=== PATIENT | female | born 1950 | race Caucasian/White ===

== ENCOUNTER → 2016-11-02 | Outpatient (CLI) | payer OTHER ==
[~2016-11-02] MED LIST: ALEN1TAB48 PO; AMLO5TAB2 PO; ASPI81CH CHEW; LOVA10TA PO; OMEP40CA2 PO; VARE1 PO
== END ==
LOC: PLAB 14:40
PROVIDERS: ATTEND Obstetrics & Gynecology
DX: Z01.818 Encounter for other preprocedural examination (principal)
CPT/HCPCS: 36415; 86900; 86901

== ENCOUNTER → 2016-11-03 | Outpatient (CLI) | payer OTHER | LOC: PHPRE 14:08 | PROVIDERS: ATTEND Obstetrics & Gynecology | DX: Z01.812 Encounter for preprocedural laboratory examination (principal) | CPT/HCPCS: 36415; 86850; 86900; 86901; 86920 ==

== ENCOUNTER 2016-11-04 08:01 | Inpatient (IN) | payer OTHER, MEDICARE ==
[~2016-11-04] VITALS: Ht 162.6 cm; Wt 44.8 kg
[~2016-11-04 08:01] MED LIST changes: -ALEN1TAB48 PO; -AMLO5TAB2 PO; -LOVA10TA PO; -OMEP40CA2 PO; -VARE1 PO
[2016-11-04] MEDS ORDERED: ceFAZolin 1,000 MG/NS 100 ML IV PRN ×2 (08:30)
[2016-11-04] MEDS ORDERED: OMEP40CA2 PO (09:09)
[2016-11-04] MEDS ORDERED: ALEN1TAB48 PO (09:09)
[2016-11-04] MEDS ORDERED: AMLO5TAB2 PO (09:09)
[2016-11-04] MEDS ORDERED: VARE1 PO (09:09)
[2016-11-04] MEDS ORDERED: LOVA10TA PO (09:09)
[2016-11-04 09:20] VITALS: BP 151/90; PULSE 71; RESP 18; TEMP 98.3; O2SAT 98
[2016-11-04] MEDS ORDERED: FAMOTIDINE 20 MG/2 ML VIAL ONE (09:36)
[2016-11-04] MEDS ORDERED: METOPROLOL TARTRATE 25 MG TAB PO PRN (09:45)
[2016-11-04] MEDS ORDERED: POVIDONE IODINE 5% (ANTISEPSIS KIT) 4 APPLICATIONS EACH NARE PRN (09:45)
[2016-11-04] MEDS ORDERED: CHLORHEXIDINE GLUCONATE 2 % 1 PACK (2 CLOTHS) TOPICAL PRN (09:45)
[2016-11-04] MEDS ORDERED: SODIUM CHLORID 0.9% 500 ML IV PRN (09:45)
[2016-11-04] MEDS ORDERED: INSULIN HUMAN REGULAR 1,000 UNITS/10 ML VIAL SQ PRN (09:45)
[2016-11-04] MEDS ORDERED: LACTATED RINGER'S 1000 ML IV PRN (09:45)
[2016-11-04] MEDS ORDERED: VASOPRESSIN INJ 20 UNITS/ML VIAL ONE (10:35)
[2016-11-04] MEDS ORDERED: SODIUM CHLORIDE 0.9% 20 ML VIAL ONE (10:37)
[2016-11-04] MEDS ORDERED: METHYLENE BLUE IV PRN (11:30)
[2016-11-04] MEDS ORDERED: SODIUM CHLORIDE 0.9% IV PRN (11:30)
[2016-11-04] MEDS ORDERED: ONDANSETRON HCL 4 MG/2 ML VIAL IV PUSH ONE (12:00)
[2016-11-04] MEDS ORDERED: PROPOFOL 200 MG/20 ML AMP IV ONE (12:00)
[2016-11-04] MEDS ORDERED: METHYLENE BLUE 10 MG/ML VIAL OTHER ONE (12:00)
[2016-11-04] MEDS ORDERED: LACTATED RINGER'S 1000 ML INJ 1,000 ML IV ONE (12:00)
[2016-11-04] MEDS ORDERED: metroNIDAZOLE 500 MG INJ 100 ML IV ONE (13:39)
[2016-11-04] MEDS ORDERED: SUGAMMADEX SODIUM 200 MG/2 ML VIAL IV PUSH ONE ×2 (14:02)
[2016-11-04 14:15] VITALS: PULSE 62
[2016-11-04] MEDS ORDERED: fentaNYL CITRATE 250 MCG/5 ML AMP ONE (14:26)
[2016-11-04] MEDS ORDERED: PROMETHAZINE INJ 25 MG/ML VIAL ONE (14:31)
[2016-11-04] MEDS ORDERED: MORPHINE SULFATE 4 MG/ML INJ ONE (14:38)
[2016-11-04] MEDS ORDERED: MEPERIDINE HCL 25 MG/ML VIAL ONE (15:21)
--- NOTE | 2016-11-04 15:26 | MP ---
cc: ADOLFO BABIN MD DATE OF SURGERY: 11/04/2016 DIAGNOSIS Status post vaginal hysterectomy, iatrogenic perforation of the small intestine. POSTOPERATIVE DIAGNOSIS Status post vaginal hysterectomy, iatrogenic perforation of the small intestine. OPERATIVE PROCEDURE Emergency repair of small bowel perforation transvaginally. SURGEON Gloria ANESTHESIA General. ESTIMATED BLOOD LOSS Minimal. INDICATION FOR PROCEDURE This 66-year-old female apparently underwent a vaginal hysterectomy by a very experienced legal department manager and in the process of removing the uterus the small bowel was nicked creating about a 1-1/2 inch laceration. This was visible through the vagina. I received a call from the operating room director to please go to the [facility] and assist with repair of the same. DETAILS OF PROCEDURE On my arrival the patient is in the stirrups and several Vicryl stitches had been placed into the opening to control it. The small bowel is explored as it was possible through this small opening transvaginally. Loops of small bowel that can be retracted appear to be normal and indeed there is only one laceration that can be detected. Again, the approach is limited as far as exploration is concerned. Vicryl has already been placed in the bowel and I placed an additional layer of 3-0 silk pop-off Lambert stitches [id number] interrupted into the small bowel to reinforce the closure. Then proximally and distally it is checked and it is patent. Again, the rest of the small bowel that can be reached through this opening in the vaginal cuff is checked. No other abnormalities are found and this completes my part of the procedure. Remainder procedures dictated by primary surgeon Dr. Unique Nicolas. Adolfo Babin SJ/IKE /2:41 PM /3:17 PM SUNG
[2016-11-04] MEDS ORDERED: DO NOT ADM ANY ANTICOAGULANT DRUGS PRN (15:30)
[2016-11-04 17:00] VITALS: BP 142/76; PULSE 67; RESP 20; TEMP 97.6; O2SAT 97
[2016-11-04] MEDS: chlordiazePOXIDE/CLIDINIUM 5 MG/2.5 MG CAP PO SCH (17:24)
[2016-11-04 20:00] VITALS: BP 123/77; PULSE 72; RESP 20; TEMP 97.4; O2SAT 94
[2016-11-05] VITALS: BP 126/72; PULSE 75; RESP 20; TEMP 98.5; O2SAT 95
[2016-11-05] MEDS: chlordiazePOXIDE/CLIDINIUM 5 MG/2.5 MG CAP PO SCH ×4 (00:30→16:27)
[2016-11-05 04:00] VITALS: BP 143/71; PULSE 72; RESP 20; TEMP 97.6; O2SAT 95
[2016-11-05 08:45] VITALS: BP 134/84; PULSE 71; RESP 19; TEMP 97.9; O2SAT 95
[2016-11-05 13:17] VITALS: BP 162/98; PULSE 89; RESP 19; TEMP 98.2; O2SAT 96
--- NOTE | 2016-11-05 14:22 | PD.OP ---
Operative Report Date of Surgery: Nov 04, 2016 Preoperative Diagnosis: (1) LGSIL on Pap smear of cervix (2) Alcoh dep NEC/NOS, unspec (3) Ovarian cyst Postoperative Diagnosis: (1) LGSIL on Pap smear of cervix (2) Small bowel perforation, intraoperative (3) Ovarian cyst (4) Alcoh dep NEC/NOS, unspec Procedure: total vaginal hysterectomy repair of iatrogenic enterotomy Anesthesia: Dr. Erum FAGAN/Mary ROMANO Surgeon: Unique Lanza to dictate his own intraoperative consult. Insurance Claims Examiner(s): Felecia Miramontes Surgeon: n/a Operation and Findings: Indications: This 66 y/o multiparous patient was referred by Dr. Nav Erickson's office for LGSIL on pap. Colposcopy showed the lesion to be within the cervical canal, and patient was offered in-office LEEP as the usual diagnostic and therapeutic treatment. However, she has had recurring cervical abnormalities over the years, requiring painful biopsies and follow up. She requests hysterectomy. After detailed discussion of this option, the relative advantages and risks, and the fact that hysterectomy does not preclude her need for follow up for the current problem, nor does it prevent vaginal or vulvar dysplasia, Total Vaginal Hysterectomy was planned. The patient requested bilateral salpingo -oophorectomy if possible, and does have a simple 6mm left ovarian cyst identified on imaging. Findings: The patient's surgery progressed per routine, with the only remarkable factor being the gassy small bowel descending into the surgical field , requiring constant retraction and adjustments. The pedicles were cut with Horan scissors and only under direct visualization, but sweeping the bowel with my digit away from the clamps as they were being placed was constantly required. Once the uterus was from the field, the pedicles were inspected individually per routine prior to cuff suspension and closure. In this process streak of bilious fluid was noted on the sponge stick. Inspection of the loops of small bowel did show one loop with a crimp tiffanie on the anti- mesenteric side and a 3 mm rent from which the fluid was produced. This was closed with two layers of interrupted 3-0 Vicryl. Careful irrigation and inspection revealed no other problems. We were proceeding with closure when Maria E the PO reimbursement manager said the Muna Adler told her that in intra-operative consult with a General Surgeon was required. The repaired rent was again located and held at the vaginal cuff with a hemostat on a suture tie until the surgeon could arrive. Thus, it was observed over an hour with normal bowel peristalsis noted and no evidence of leakage from that site or any other. Please see consulting surgeon's note for details. Procedure: The patient was taken to the OR and placed supine on the operating table for induction of general anesthesia and intubation. She was then positioned in low stirrups with SCDs operating. After prep and drape a Prieto catheter was used to drain the bladder, and about 60 cc of methylene-blue stained fluid was instilled in the bladder. The catheter was clamped off until the uterus was removed from the field, and then it was re-connected to bedside drainage. A weighted vaginal speculum was placed in the posterior vagina. The anterior lip of the cervix was grasped with a single-tooth tenaculum. Dilute vasopressin was injected circumferentially around the cervix. An incision around the cervix was then cut with Horan scissors, thus entering the cul de sac posteriorly.The weighted retractor was replaced with an extra long one, holding the rectum out of the surgical field throughout the remainder of the case until cuff suspension and closure. The uterosacral ligaments were clamped, pedicles cut, and Vera suture ligatures were placed. The uterovesical space was then entered, and the patient's bladder was retracted anteriorly out of the surgical field until cuff closure. The cardinal ligaments were then clamped and cut with placement of Vera suture ligatures. Finally, the utero-ovarian ligaments were identified and clamped with both a Vera clamp and a long Lina clamp on each side before dividing these ligaments and the uterus from the field. These adnexal pedicles were free-tied followed by Vera suture ligatures, bilaterally. 0 Vicryl was used throughout this case up to this point.The pedicles were then inspected individually for hemostasis. The findings described above were noted, and the enterotomy was repaired as described. After intra-operative consult, the vaginal cuff was then supported using the uterosacral and cardinal pedicle ties which were left long. A free needle was used to bring the uterosacral and cardinal ties through the cuff to the posterior and anterior fornices, respectively. They were then tied to their ipsa -lateral partners for further hemostasis and for support. The remaining cardinal and uterosacral ties were tied across the cuff to their contralateral partners for more support and to create a vertical orientation to the vaginal cuff. Finally, the vaginal cuff was closed with 0 Vicryl in running-locked fashion from posterior to anterior, taking care to get full thickness bites. The procedure being complete, the patient was replaced supine and awakened. She was transferred to the PACU awake and breathing on her own. Sponge, needle and instrument counts were correct. The patient received 500 mg metronidazole and a second gram of Ancef intra-operatively. Unique Johnston MD Nov 05, 2016 14:20
[2016-11-05 16:39] VITALS: BP 146/83; PULSE 78; RESP 19; TEMP 98.6; O2SAT 94
--- NOTE | 2016-11-05 17:46 | HHI.DS ---
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 Significant Findings The uterus was small. The bowels were noted to be distended with gas at time of surgery. Patient sustained a small perforation of the small intestine intra- operatively, and it was repaired through the vaginal incision. PE at Discharge The patient has been passing flatus since the day of surgery. Her abdomen is not distended and bowel sounds are normal. She has had no vaginal discharge, is voiding normally, and is tolerating a regular diet. She is anxious to go home. She has had no signs of alcohol withdrawal despite some symptoms when she was hospitalized for her carotid endarterectomy. She has required no pain medication post-operatively. Pt Condition on Discharge: Good Discharge Disposition: Discharge Home Discharge Instructions DIET: Follow Instructions for: As Tolerated, No Restrictions Activities you can perform: Pelvic Rest Activities to avoid: Lifting/Bending, Weight Bearing, Strenuous Activity, Bathing Additional Information Patient already has her post-operative pain medications at home. She already has a post-op appt scheduled for next week. Unique Johnston MD Nov 05, 2016 17:46
== END 2016-11-05 18:13 | disposition home or self-care (01) | DRG 742 ==
LOC: PHSDC 08:01 → EDUNIT# 10:00 → OBSVTOIN 14:19 → PH3A 14:19 → UNDOADMOB 17:02 → PH3A 17:02 → UNDODISOB 11-05 18:13
PROVIDERS: ADMIT Obstetrics & Gynecology; ATTEND Obstetrics & Gynecology
PROC: 0UTC7ZZ Resection of Cervix, Via Natural or Artificial Opening (ICD-10-PCS; 2016-11-04)
PROC: 0DQ Gastrointestinal System, Repair (ICD-10-PCS; 2016-11-04)
PROC: 0UT97ZZ Resection of Uterus, Via Natural or Artificial Opening (ICD-10-PCS; principal; 2016-11-04 11:35)
DX: R87.612 Low grade squamous intraepithelial lesion on cytologic smear of cervix (LGSIL) (principal); K91.72 Accidental puncture and laceration of a digestive system organ or structure during other procedure; J44.9 Chronic obstructive pulmonary disease, unspecified; Z68.1 Body mass index [BMI] 19.9 or less, adult; I10 Essential (primary) hypertension; E78.5 Hyperlipidemia, unspecified; K21.9 Gastro-esophageal reflux disease without esophagitis; M81.0 Age-related osteoporosis without current pathological fracture; N83.202 Unspecified ovarian cyst, left side; F17.210 Nicotine dependence, cigarettes, uncomplicated; F10.20 Alcohol dependence, uncomplicated; Z85.828 Personal history of other malignant neoplasm of skin
CPT/HCPCS: 88307; J0690; J2175; J2270; J2405; J2550; J3010; J7120